=== PATIENT | female | born 1935 | race Caucasian/White ===

== ENCOUNTER → 2016-11-24 | Outpatient (CLI) | payer OTHER, MEDICARE | LOC: MC.RAD 10:16 | DX: Z12.31 Encounter for screening mammogram for malignant neoplasm of breast (principal); Z80.3 Family history of malignant neoplasm of breast ==

== ENCOUNTER → 2018-02-15 | Outpatient (CLI) | payer OTHER, MEDICARE | LOC: MC.RAD 10:47 | DX: Z12.31 Encounter for screening mammogram for malignant neoplasm of breast (principal) ==

== ENCOUNTER → 2019-04-11 | Outpatient (CLI) | payer OTHER, MEDICARE | LOC: MC.RAD 10:38 | DX: Z12.31 Encounter for screening mammogram for malignant neoplasm of breast (principal) ==

== ENCOUNTER → 2019-11-23 | Outpatient (CLI) | payer MEDICARE | LOC: COL.RAD 11-08 07:30 | DX: I67.82 Cerebral ischemia (principal); H90.3 Sensorineural hearing loss, bilateral ==